=== PATIENT | female | born 1995 | race Caucasian/White ===

== ENCOUNTER → 2018-06-13 | Outpatient (CLI) | payer OTHER | END | disposition home or self-care (01) | LOC: CFH 07:22 | PROVIDERS: ATTEND Obstetrics & Gynecology | DX: N83.201 Unspecified ovarian cyst, right side (principal) | CPT/HCPCS: 76830 ==

== ENCOUNTER 2019-04-17 03:48 | Emergency (ER) | payer BC, OTHER ==
[~2019-04-17] VITALS: Ht 165.1 cm; Wt 81.3 kg
[2019-04-17] MEDS ORDERED: HYDROcodone/APAP 5/325 TABLET ONE (04:22)
--- NOTE | 2019-04-17 04:27 | NUR ---
PT AMBULATORY TO THE RESTROOM TO ATTEMPT URINE COLLECTION. PENDING US AT THIS TIME.
[2019-04-17] MEDS ORDERED: HYDROcodone/APAP 5/325 TABLET PO ONE (04:30)
[2019-04-17 04:38] LABS: BASOPHILS # (AUTO) 0.06 x10^3/uL (0-0.1); BASOPHILS % (AUTO) 1 % (0-1); EOSINOPHILS # (AUTO) 0.19 x10^3/uL (0-0.4); EOSINOPHILS % (AUTO) 2 % (1-7); LYMPHOCYTES # (AUTO) 3.44 x10^3/uL (1-3.4); LYMPHOCYTES % (AUTO) 42 % (22-44); MD NO; MEAN CORPUSCULAR HEMOGLOBIN 31.8 pg (27.0-34.8); MEAN CORPUSCULAR HGB CONC 33.4 g/dL (32.4-35.8); MEAN CORPUSCULAR VOLUME 95.3 fL (80-100); MEAN PLATELET VOLUME 8.9 fL (7.4-10.4); MONOCYTES # (AUTO) 0.62 x10^3/uL (0.2-0.8); MONOCYTES % (AUTO) 8 % (2-9); NEUTROPHILS # (AUTO) 3.88 x10^3/uL (1.8-6.8); NEUTROPHILS % (AUTO) 47 % (42-75); PLATELET COUNT 270 x10^3/uL (130-400); RED BLOOD COUNT 4.44 x10^6/uL (3.82-5.3); RED CELL DISTRIBUTION WIDTH 12.8 % (9.6-15.2)
[2019-04-17 04:49] LABS: ALANINE AMINOTRANSFERASE 29 U/L (12-78); ALBUMIN 3.9 g/dL (3.4-5.0); ANION GAP 5 mmol/L (5-15); CALCIUM 8.7 mg/dL (8.5-10.1); CHLORIDE 111 mmol/L (98-107)
[2019-04-17 04:52] LABS: ALKALINE PHOSPHATASE 82 U/L (45-117); BILIRUBIN,TOTAL 0.4 mg/dL (0.2-1.0); CREATININE 0.56 mg/dL (0.55-1.02); TOTAL PROTEIN 7.4 g/dL (6.4-8.2)
[2019-04-17 05:21] LABS: MICROSCOPIC INDICATED
[2019-04-17 05:22] LABS: HCG UR SG >= 1.030 (1.003-1.030)
[2019-04-17 05:42] VITALS: BP 106/59
--- NOTE | 2019-04-17 05:42 | NUR ---
PT REPORTS IMPROVED PAIN FOLLOWING MEDS. PENDING US RESULTS.
--- NOTE | 2019-04-17 05:49 | NUR ---
AT THE BEDSIDE DISCUSSING POC.
[2019-04-17 07:14] LABS: CULTURE INDICATED? YES
== END 2019-04-17 06:11 | disposition home or self-care (01) ==
LOC: ED 06:07
DX: R10.2 Pelvic and perineal pain (principal)
CPT/HCPCS: 36415; 76830; 80053; 81001; 81025; 85025; 87086; 99284

== ENCOUNTER 2019-10-22 08:59 | Emergency (ER) | payer BC, OTHER ==
[~2019-10-22] VITALS: Ht 157.5 cm; Wt 84.1 kg
[2019-10-22 09:08] VITALS: BP 137/72
[2019-10-22 09:48] LABS: BASOPHILS # (AUTO) 0.05 x10^3/uL (0-0.1); BASOPHILS % (AUTO) 1 % (0-1); EOSINOPHILS # (AUTO) 0.18 x10^3/uL (0-0.4); EOSINOPHILS % (AUTO) 3 % (1-7); LYMPHOCYTES # (AUTO) 2.13 x10^3/uL (1-3.4); LYMPHOCYTES % (AUTO) 31 % (22-44); MD NO; MEAN CORPUSCULAR HEMOGLOBIN 31.6 pg (27.0-34.8); MEAN CORPUSCULAR HGB CONC 33.5 g/dL (32.4-35.8); MEAN CORPUSCULAR VOLUME 94.3 fL (80-100); MONOCYTES # (AUTO) 0.77 x10^3/uL (0.2-0.8); MONOCYTES % (AUTO) 11 % (2-9); NEUTROPHILS # (AUTO) 3.67 x10^3/uL (1.8-6.8); NEUTROPHILS % (AUTO) 54 % (42-75); PLATELET COUNT 283 x10^3/uL (130-400); RED BLOOD COUNT 4.63 x10^6/uL (3.82-5.3); RED CELL DISTRIBUTION WIDTH 12.9 % (9.6-15.2)
[2019-10-22 09:59] LABS: ALANINE AMINOTRANSFERASE 26 U/L (12-78); ALBUMIN 3.8 g/dL (3.4-5.0); ANION GAP 7 mmol/L (5-15); CALCIUM 9.2 mg/dL (8.5-10.1); CHLORIDE 108 mmol/L (98-107); CREATININE 0.67 mg/dL (0.55-1.02)
[2019-10-22 10:04] LABS: ALKALINE PHOSPHATASE 87 U/L (45-117); BILIRUBIN,TOTAL 0.2 mg/dL (0.2-1.0); TOTAL PROTEIN 7.5 g/dL (6.4-8.2)
[2019-10-22 10:21] LABS: MICROSCOPIC AUTO
[2019-10-22 10:26] LABS: CULTURE INDICATED? NO
--- NOTE | 2019-10-22 10:56 | NUR ---
PT SITTING IN BED, DENIES ANY NEEDS OR CONCERNS AT THIS TIME. CALL LIGHT IN REACH.
--- NOTE | 2019-10-22 12:32 | NUR ---
Ladan salazar in [facility] - 10/22/19 at 1234 by [email or web address] REPORT TO PRE-OP. PT TAKEN OFF FLOOR, PARENTS AT BEDSIDE.
--- NOTE | 2019-10-22 12:34 | NUR ---
PT IN BED, DRESSED AND AWAITING DISCHARGE AT THIS TIME.
== END 2019-10-22 12:57 | disposition home or self-care (01) ==
LOC: ED 10:37
DX: R10.33 Periumbilical pain (principal); I88.0 Nonspecific mesenteric lymphadenitis; F43.10 Post-traumatic stress disorder, unspecified; J45.909 Unspecified asthma, uncomplicated
CPT/HCPCS: 36415; 74021; 74176; 80053; 81001; 84703; 85025; 99284